=== PATIENT | female | born 1960 | race Hispanic/Latino ===

== ENCOUNTER 2016-07-07 17:35 | Observation (INO) | payer BC ==
[2016-07-07 18:04] LABS: Hematocrit 39.1 % (37.0-47.0); Mean Cell Volume 84.3 fl (78-100); Mean Corpuscular Hgb Conc 33.2 g/dl (32-36); Mean Platelet Volume 9.5 fl (6.0-9.5); Neutrophil # 4.8 K/mm3 (1.3-6.0); Platelet Count 276 K/mm3 (150-450); Red Blood Count 4.64 M/mm3 (4.2-5.4); Red Cell Distribution Width 12.3 % (11.5-14.0); White Blood Count 7.9 K/mm3 (4.0-10.5)
[2016-07-07 18:18] LABS: Prothrombin Time (Patient) 11.4 Seconds (9.4-11.4)
[2016-07-07 18:19] LABS: INR 1.1 INR (0.90-1.10); Partial Thrombolplastin Time 28.7 Seconds (24-32)
[2016-07-07 18:20] LABS: Albumin * 4.1 gm/dl (3.4-5.0); BUN/Creatinine Ratio 19.4 (9.0-21.6); Bilirubin, Total 0.7 mg/dL (0.0-1.1); Ca. Corrected For Albumin 8.9 mg/dL (8.4-10.2); Calcium * 9.3 mg/dL (7.9-10.9); Potassium 3.8 mmol/L (3.4-4.6); Total Protein 7.4 gm/dL (6.2-8.2)
[2016-07-07 18:29] LABS: Anion Gap 14.7 mmol/L (6.8-13.8); Carbon Dioxide 25.1 mmol/L (24-32.6)
--- OUTSIDE RECORDS SUMMARY | 2016-07-07 18:56 | XMS REPORT | Continuity of Care Document ---
:1960 Author Organization [facility] ([facility]) Address [address] [place] [address] Phone [phone] Care Team Providers Name Role Phone EmberJoe Primary Care Provider [phone] Source Comments This disclosure is being made pursuant to the Care Everywhere program, applicable federal and state laws, and may not contain all informaitonavailable regarding this patient.[facility] ([facility]) Active Allergies and Adverse Reactions Allergen Noted Date Severity Reactions Comments Codeine 09/11/2009 Pruritus Sulfamethoprim Ds 09/11/2009 Urticaria (Hives) Current Medications Prescription Sig. Disp. Refills Start Date End Date Status Melatonin 3 mg TbSR Take by mouth at Active bedtime as needed. gabapentin 600 mg Take 1 Tab by 120 Tab 11 01/13/2012 Active tablet mouth 4 times daily. Indications: NEUROPATHIC PAIN HYDROcodone-acetamino Take 1 Tab by Active phen 5-325 mg per mouth as needed. tablet cholecalciferol Take 5,000 Units Active (VITAMIN D3) 1,000 by mouth daily. unit tablet levothyroxine 50 mcg take 1 tablet 2 12/11/2015 Active tablet (50 mcg) by oral route on mon,wed,fri for 90 days levothyroxine 75 mcg take 1 tablet by 2 12/09/2015 Active tablet oral route on ,,wed,s un ALPRAZolam 0.5 mg TAKE 1/2 TO 1 5 05/22/2016 Active tablet TABLET BY MOUTH TWICE DAILY alprazolam (XANAX XR) Take 1.5 mg by Discontinued 3 mg XR tablet mouth as needed. 7 Active Problems Problem Noted Date UTI (lower urinary tract infection) 08/26/2013 Depression 08/26/2013 Hypothyroidism 01/13/2012 Multiple sclerosis 03/13/2011 Most Recent Encounters Date Type Specialty Providers Description 06/18/2016 Office Visit Neurology Gisel Coronado Dx: Liliana sclerosis MD Sagar (Primary Dx) 05/15/2016 Telephone Neurology Gisel Coronado MD 05/04/2016 Hospital Encounter Radiology Sam Luque MD Dx: MS ( multiple sclerosis) 05/04/2016 Hospital Encounter Radiology Sam Luque MD Dx: MS ( multiple sclerosis) 04/16/2016 Office Visit Neurology Gisel Coronado Dx: MS (liliana T, MD sclerosis) (Primary Dx) Immunizations Name Dates Previously Given Next Due Influenza, unspecified 12/07/2014,12/06/2012 Social History Tobacco Use Types Packs/Day Years Used Date Current Every Day Smoker Cigarettes 0.25 2 Smokeless Tobacco: Never Used Tobacco Cessation:Counseling Given: Yes Comments: Alcohol Use Drinks/Week oz/Week Comments No Last Filed Vital Signs Vital Sign Reading Time Taken Blood Pressure 121/71 06/18/2016 8:46 AM CDT Pulse 57 06/18/2016 8:46 AM CDT Temperature - - Respiratory Rate - - Height 1.524 m (5') 06/18/2016 8:46 AM CDT Weight 50.9 kg (112 lb 3.4 oz) 06/18/2016 8:46 AM CDT Body Mass Index 21.92 06/18/2016 8:46 AM CDT Oxygen Saturation 98% 06/18/2016 8:46 AM CDT Plan of Care Date Type Specialty Providers Description 06/18/2017 Appointment Neurology Jroge Luis Armenta MD Subj: Appointment Scheduled [address] [place] [address] [phone] (Fax) Health Maintenance Due Date Last Done Comments HCV Screening 1960 Hepatitis B Vaccine (1 of 3 - Primary 1960 Series) Tdap Vaccine 1969 Lipid Disorder Screening 1976 MMR Vaccine 1976 Td Vaccine 1976 Pneumococcal Vaccine (1 of 1 - PPSV23) 1977 Cervical Cancer Screening 1988 Mammogram 1998 Colonoscopy 04/26/2008 Influenza Vaccine: Seasonal Completed 12/07/2014, 12/06/2012 Results from Last 3 Months MRI SPINE CERVICAL W/WO CONTRAST ([id number]) (05/04/2016 4:46 PM) Impressions Impression: 1. Diffuse subcortical and periventricular white matter plaques, consistent with history of MS. 2. There are multiple new plaques in the subcortical U fibers of the right frontal lobe, as well as about the left lateral ventricle. 3. Multiple white matter plaques are seen throughout the cervical spine and in the left brainstem. 4. No restricted diffusion or enhancement. (Diffusion sequence of the cervical spine is limited due to motion artifact.) Narrative Procedure: MRI BRAIN W/WO CONTRAST ([id number]), MRI SPINE CERVICAL W/WO CONTRAST ([id number]) Indication: History of MS for 7 years. Worsening weakness, numbness and memory. Technique: 1. Multisequence, multiplanar MRI of the brain before and after the uneventful administration of 5.8 mL Gadavist IV contrast using the multiple sclerosis protocol. 2. Multisequence, multiplanar MRI of the cervical spine before and after the uneventful administration of 5.8 mL GadavistIV contrast using a demyelination protocol. Comparison: MRI brain dated 02/01/2012. Findings: -Brain: There are multiple areas of abnormal FLAIR signal throughout the subcortical and periventricular white matter. New areas within the subcortical U fibers are identified in the left frontal lobe (2-17 and 2-9). The more lateral and posterior lesion appears to involve the motor cortex. No suspicious areas of pathologic enhancement or restricted diffusion. There is a new lesion about the left ventricular antrum. An additional new lesion is identified extending from the anterior body of the left ventricle projecting towards the cortex. There is a lesion in the left krishna. There is no acute infarct, intracranial mass, or intra or extra-axial hemorrhage. The ventricles, cortical sulci and basal cisterns are symmetric and appropriate in size. The pituitary and suprasellar region are unremarkable. The major intracranial flow-voids are preserved. Normal orbits. The paranasal sinuses demonstrate diffuse mild mucosal thickening. Mastoid air cells are clear. Normal bone marrow signal. -Cervical Spine: There is grossly anatomic alignment. Vertebral body heights are well-maintained. There are scattered high T2/STIR signal plaques throughout the cervical and upper thoracic cord. There is no pathologic enhancement. The diffusion sequence is degraded by artifact and not interpretable. Unremarkable marrow signal. Prevertebral soft tissues are unremarkable. There are mild to moderate degenerative changes without significant stenosis. Grossly normal thyroid. Procedure Note Eduin, Incoming Imaging Results - WedMay 04, 2016 5:09 PM [facility] Procedure: MRI BRAIN W/WO CONTRAST ([id number]), MRI SPINE CERVICAL W/WO CONTRAST ([id number]) Indication: History of MS for 7 years. Worsening weakness, numbness and memory. Technique: 1. Multisequence, multiplanar MRI of the brain before and after the uneventful administration of 5.8 mL Gadavist IV contrast using the multiple sclerosis protocol. 2. Multisequence, multiplanar MRI of the cervical spine before and after the uneventful administration of 5.8 mL Gadavist IV contrast using a demyelination protocol. Comparison: MRI brain dated 02/01/2012. Findings: -Brain: There are multiple areas of abnormal FLAIR signal throughout the subcortical and periventricular white matter. New areas within the subcortical U fibers are identified in the left frontal lobe (2-17 and 2-9). The more lateral and posterior lesion appears to involve the motor cortex. No suspicious areas of pathologic enhancement or restricted diffusion. There is a new lesion about the left ventricular antrum. An additional new lesion is identified extending from the anterior body of the left ventricle projecting towards the cortex. There is a lesion in the left krishna. There is no acute infarct, intracranial mass, or intra or extra-axial hemorrhage. The ventricles, cortical sulci and basal cisterns are symmetric and appropriate in size. The pituitary and suprasellar region are unremarkable. The major intracranial flow-voids are preserved. Normal orbits. The paranasal sinuses demonstrate diffuse mild mucosal thickening. Mastoid air cells are clear. Normal bone marrow signal. -Cervical Spine: There is grossly anatomic alignment. Vertebral body heights are well-maintained. There are scattered high T2/STIR signal plaques throughout the cervical and upper thoracic cord. There is no pathologic enhancement. The diffusion sequence is degraded by artifact and not interpretable. Unremarkable marrow signal. Prevertebral soft tissues are unremarkable. There are mild to moderate degenerative changes without significant stenosis. Grossly normal thyroid. IMPRESSION Impression: 1. Diffuse subcortical and periventricular white matter plaques, consistent with history of MS. 2. There are multiple new plaques in the subcortical U fibers of the right frontal lobe, as well as about the left lateral ventricle. 3. Multiple white matter plaques are seen throughout the cervical spine and in the left brainstem. 4. No restricted diffusion or enhancement. (Diffusion sequence of the cervical spine is limited due to motion artifact.) MRI BRAIN W/WO CONTRAST ([id number]) (05/04/2016 4:29 PM) Impressions Impression: 1. Diffuse subcortical and periventricular white matter plaques, consistent with history of MS. 2. There are multiple new plaques in the subcortical U fibers of the right frontal lobe, as well as about the left lateral ventricle. 3. Multiple white matter plaques are seen throughout the cervical spine and in the left brainstem. 4. No restricted diffusion or enhancement. (Diffusion sequence of the cervical spine is limited due to motion artifact.) Narrative Procedure: MRI BRAIN W/WO CONTRAST ([id number]), MRI SPINE CERVICAL W/WO CONTRAST ([id number]) Indication: History of MS for 7 years. Worsening weakness, numbness and memory. Technique: 1. Multisequence, multiplanar MRI of the brain before and after the uneventful administration of 5.8 mL Gadavist IV contrast using the multiple sclerosis protocol. 2. Multisequence, multiplanar MRI of the cervical spine before and after the uneventful administration of 5.8 mL GadavistIV contrast using a demyelination protocol. Comparison: MRI brain dated 02/01/2012. Findings: -Brain: There are multiple areas of abnormal FLAIR signal throughout the subcortical and periventricular white matter. New areas within the subcortical U fibers are identified in the left frontal lobe (2-17 and 2-9). The more lateral and posterior lesion appears to involve the motor cortex. No suspicious areas of pathologic enhancement or restricted diffusion. There is a new lesion about the left ventricular antrum. An additional new lesion is identified extending from the anterior body of the left ventricle projecting towards the cortex. There is a lesion in the left krishna. There is no acute infarct, intracranial mass, or intra or extra-axial hemorrhage. The ventricles, cortical sulci and basal cisterns are symmetric and appropriate in size. The pituitary and suprasellar region are unremarkable. The major intracranial flow-voids are preserved. Normal orbits. The paranasal sinuses demonstrate diffuse mild mucosal thickening. Mastoid air cells are clear. Normal bone marrow signal. -Cervical Spine: There is grossly anatomic alignment. Vertebral body heights are well-maintained. There are scattered high T2/STIR signal plaques throughout the cervical and upper thoracic cord. There is no pathologic enhancement. The diffusion sequence is degraded by artifact and not interpretable. Unremarkable marrow signal. Prevertebral soft tissues are unremarkable. There are mild to moderate degenerative changes without significant stenosis. Grossly normal thyroid. Procedure Note Eduin, Incoming Imaging Results - WedMay 04, 2016 5:09 PM [facility] Procedure: MRI BRAIN W/WO CONTRAST ([id number]), MRI SPINE CERVICAL W/WO CONTRAST ([id number]) Indication: History of MS for 7 years. Worsening weakness, numbness and memory. Technique: 1. Multisequence, multiplanar MRI of the brain before and after the uneventful administration of 5.8 mL Gadavist IV contrast using the multiple sclerosis protocol. 2. Multisequence, multiplanar MRI of the cervical spine before and after the uneventful administration of 5.8 mL Gadavist IV contrast using a demyelination protocol. Comparison: MRI brain dated 02/01/2012. Findings: -Brain: There are multiple areas of abnormal FLAIR signal throughout the subcortical and periventricular white matter. New areas within the subcortical U fibers are identified in the left frontal lobe (2-17 and 2-9). The more lateral and posterior lesion appears to involve the motor cortex. No suspicious areas of pathologic enhancement or restricted diffusion. There is a new lesion about the left ventricular antrum. An additional new lesion is identified extending from the anterior body of the left ventricle projecting towards the cortex. There is a lesion in the left krishna. There is no acute infarct, intracranial mass, or intra or extra-axial hemorrhage. The ventricles, cortical sulci and basal cisterns are symmetric and appropriate in size. The pituitary and suprasellar region are unremarkable. The major intracranial flow-voids are preserved. Normal orbits. The paranasal sinuses demonstrate diffuse mild mucosal thickening. Mastoid air cells are clear. Normal bone marrow signal. -Cervical Spine: There is grossly anatomic alignment. Vertebral body heights are well-maintained. There are scattered high T2/STIR signal plaques throughout the cervical and upper thoracic cord. There is no pathologic enhancement. The diffusion sequence is degraded by artifact and not interpretable. Unremarkable marrow signal. Prevertebral soft tissues are unremarkable. There are mild to moderate degenerative changes without significant stenosis. Grossly normal thyroid. IMPRESSION Impression: 1. Diffuse subcortical and periventricular white matter plaques, consistent with history of MS. 2. There are multiple new plaques in the subcortical U fibers of the right frontal lobe, as well as about the left lateral ventricle. 3. Multiple white matter plaques are seen throughout the cervical spine and in the left brainstem. 4. No restricted diffusion or enhancement. (Diffusion sequence of the cervical spine is limited due to motion artifact.)
--- OUTSIDE RECORDS SUMMARY | 2016-07-07 18:58 | XMS REPORT | Continuity of Care Document ---
:1960 Author Organization [facility] ([facility]) Address [address] [place] [address] Phone [phone] Care Team Providers Name Role Phone EmberJoe Primary Care Provider [phone] Source Comments This disclosure is being made pursuant to the Care Everywhere program, applicable federal and state laws, and may not contain all informaitonavailable regarding this patient.[facility] ([facility]) Active Allergies and Adverse Reactions Allergen Noted [...] Neurology Gisel Coronado Dx: Liliana sclerosis MD Sagra (Primary Dx) 05/15/2016 Telephone Neurology Gisel Coronado [...] Type Specialty Providers Description 06/18/2017 Appointment Neurology Jorge Luis Armenta MD Subj: Appointment Scheduled [address] [place] [address] [phone] (Fax) Health Maintenance Due Date Last Done [...] 3 Months MRI SPINE CERVICAL W/WO CONTRAST ([id number]) (05/04/2016 4:46 PM) Impressions Impression: 1. Diffuse [...] artifact.) Narrative Procedure: MRI BRAIN W/WO CONTRAST ([id number]), MRI SPINE CERVICAL W/WO CONTRAST ([id number]) Indication: History of MS for 7 years. [...] Results - WedMay 04, 2016 5:09 PM [employer] Procedure: MRI BRAIN W/WO CONTRAST ([id number]), MRI SPINE CERVICAL W/WO CONTRAST ([id number]) Indication: History of MS for 7 years. [...] to motion artifact.) MRI BRAIN W/WO CONTRAST ([id number]) (05/04/2016 4:29 PM) Impressions Impression: 1. Diffuse [...] artifact.) Narrative Procedure: MRI BRAIN W/WO CONTRAST ([id number]), MRI SPINE CERVICAL W/WO CONTRAST ([id number]) Indication: History of MS for 7 years. [...] Results - WedMay 04, 2016 5:09 PM [employer] Procedure: MRI BRAIN W/WO CONTRAST ([id number]), MRI SPINE CERVICAL W/WO CONTRAST ([id number]) Indication: History of MS for 7 years. [...]
[2016-07-07] MEDS ORDERED: ACETAMINOPHEN 500 MG TABLET PO ONE (19:02)
[2016-07-07] MEDS ORDERED: IBUPROFEN 600 MG TABLET PO PRN (19:26)
--- NOTE | 2016-07-07 19:30 | ERNOTE ---
Neuro HPI ER Record Date of Service: 07/07/16 Presenting Symptoms: weakness, other - jerking Time Seen by Provider: 07/07/16 17:59 Source: patient, family Exam Limitations: no limitations Immunizations: IMMUNIZATION HX Immunizations Up to Date Yes History of Influenza Vaccine Yes Hx Pneumococcal Vaccination No Allergies/Adverse Reactions: Allergies Allergy/AdvReac Type Severity Reaction Status Date / Time codeine [Codeine] AdvReac Mild Itching Verified 12/04/14 07:19 sulfamethoxazole AdvReac Mild RASH Verified 12/04/14 07:19 [From Bactrim] trimethoprim [From Bactrim] AdvReac Mild RASH Verified 12/04/14 07:19 Home Medications: HOME MEDICATIONS ALPRAZolam [Xanax] 0.25 - 0.5 mg PO BID 04/12/12 [Last Taken Unknown] Cholecalciferol (Vitamin D3) [Vitamin D3] 3,000 unit PO DAILY 04/12/12 [Last Taken Unknown] Gabapentin 600 mg PO QID 04/12/12 [Last Taken Unknown] Levothyroxine Sodium [Synthroid] 75 mcg PO SUTUTHSA 04/12/12 [Last Taken Unknown ] HYDROcodone/ACETAMINOPHEN [Lortab 5-325 mg Tablet] 1 each PO Q6H PRN 11/13/14 [ Last Taken Unknown] Levothyroxine Sodium [Synthroid] 50 mcg PO MOWEFR 11/13/14 [Last Taken Unknown] Ibuprofen [Motrin] 600 mg PO TID PRN #30 tab 12/04/14 [Last Taken Unknown] - History of Present Illness Narrative: Patient present to the ED with jerking, weakness and headache. She relaets that earlier today she started to have a headache. She relates that around 11 today she had spasms and jerking of her left eye and face. A little over an hour ago she had some jerking of her left arm and weakness of left arm and leg. That weakness is now nearly entirely resolved. She was conscious at all times. No CP or SOB. No abdominal pain. Onset: sudden onset - Character of Deficits New weakness: Present: LUE, LLE Additional Deficits: Absent: vision problems, difficulty swallowing, bed-ridden Baseline Cognition: Present: alert, oriented x 4 Baseline Gait: Present: other - mild deficit from her MS Associated Symptoms: Reports: headache. Denies: fever/chills, chest pain, altered mental status Prior Treament: Denies: recently seen Review of Systems - Review of Systems Constitutional: Absent: fever Respiratory: Absent: shortness of breath Cardiology: Absent: chest pain Gastrointestinal/Abdominal: Absent: abdominal pain Genitourinary: Absent: dysuria Skin: Absent: rash Neurological: Present: See HPI All Other Systems: All systems neg except as marked - Patient's Past Medical History Patient History - Medical: Arthritis, Hypothyroidism, Other Patient History - Cardiac/Respiratory: No pertinent hx Patient History - Cancer: Colon Patient History - Surgical Procedures: Colon Resection, , D & C, T & A , Other Patient History - Other: None - Social History Living Situations: home Abuse History: No History of abuse Psych History: No pertinent hx Smoking Status: Current every day smoker Have you smoked in the past 12 months: Yes Do you dip or chew tobacco: No Alcohol Use: none Drug Use: other - Immunizations Immunizations Up to Date: Yes Hx Pneumococcal Vaccination: No History of Influenza Vaccine: Yes Physical Exam - Physical Exam General Appearance: Present: alert, no apparent distress Eye Exam: Normal inspection: bilateral, PERRL: bilateral, EOMI: bilateral Ears, Nose, Throat: Present: normal ENT inspection Neck: Present: normal inspection Respiratory: Present: no respiratory distress, normal breath sounds, no accessory muscle use, lungs clear Cardiovascular/Chest: Present: regular rate, rhythm, normal peripheral pulses Gastrointestinal/Abdominal: Present: normal bowel sounds, nontender, soft, tenderness Back Exam: Absent: CVA tenderness (R), CVA tenderness (L) Extremity Exam: Present: normal inspection Neurological Exam: Present: alert, oriented, normal mood/affect, shipper and receiving II-XII nml as tested, normal cerebellar test, other - No pronator drift. Finger to nose wnl. Can hold both legs off [facility] bed against gravity but both mildly weak. NIH - 0 at this time.. Absent: facial droop Skin Exam: Absent: skin rash ED Progress - Results and Orders Patient's Lab Results:: I have reviewed the patient's lab results. - Vital Signs Patient's Vital Signs:: I have reviewed the patient's vital signs. Vital Signs: Vital Signs 07/07/16 17:39 Temperature 37.2 C Pulse Rate 69 Respiratory 16 Rate Blood Pressure 127/80 O2 Sat by Pulse 93 Oximetry - EKG EKG read: Interp. by me EKG Comments: Sinus Alan rate 49. Non-specific ST/T wave changes no STEMI. - CT/Ultrasound CT/Ultrasound Narrative: I reviewed HCT report from radiology, no acute process. - Progress/Reassessment Chief Complaint: Seizure Activity Progress Note-Subjective: 07/07/16 19:27 No indication for tPA. NIH - 0 at this time and also possible seizure. No active Sz. Needs further eval, worsening MS vs TIA vs seizure, vs other. Pt agreeable to admission. D/W Dr Cornejo who will admit. Departure Clinical Impression: Jerking, Weakness - Departure Disposition: [facility] Condition: Stable
[2016-07-07] MEDS ORDERED: ALPRAZolam 0.5 MG TABLET PO PRN (20:50)
[2016-07-07] MEDS ORDERED: GABAPENTIN 300 MG CAPSULE PO SCH (21:00)
[2016-07-07] MEDS: HYDROcodone/ACETAMINOPHEN 1 EACH TABLET PO PRN (21:10)
--- NOTE | 2016-07-07 21:31 | HP ---
Chief Complaint - Chief Complaint Date of Service: 07/07/16 Time of Service: 20:52 Chief Complaint: weakness History of Present Illness: 56 years old female adm to the hospital with reports of left side weakness, tremors and left eye spasm (twitching). Weakness an tremors had self resolved before coming to the ER. PMH significant for MS diagnosed 8yrs ago, migraine, colon cancer and hypothyroidism. Per pt she has been having frontal headache x2 days, accompanied with consistent left eye twitching. She typically have the weakness and eye twitching but it has not been this consistent since her last MS relapse several years ago. Per pt s/s got progressively worst today, her face was twisted and she was unable to talk. Family was concerns and brought her to the ER. Last month she had follow up appointment with neurologist in [place]. Her MRI brain and lumbar spine showed new lesions.She is on neurontin 600mg QID and Copaxone was discontinued a year ago. In ER CT head no acute changes, will obtain MRI and EEG to r/o TIA vs seizures. Plan of care discussed with pt and family they verbalized understanding and agrees. - Patient's Past Medical History Patient History - Medical: Arthritis, Hypothyroidism, Other - multiple sclerosis Patient History - Cardiac/Respiratory: No pertinent hx Patient History - Cancer: Colon Patient History - Surgical Procedures: Colon Resection, - x4, D & C, T & A, Other - Tonsillectomy Patient History - Other: None - Family History Mother Family History - Medical: Osteoporosis Family History - Cancer: Colon Father Family History - Cancer: Lung, Throat - Social History Living Situations: spouse Abuse History: No History of abuse Psych History: No pertinent hx Smoking Status: Current every day smoker Have you smoked in the past 12 months: Yes Do you dip or chew tobacco: No Patient requests Smoking Cessation Consult: No Initiate information on Smoking Cessation: Yes Alcohol Use: none Drug Use: other - Immunizations Immunizations Up to Date: Yes Hx Pneumococcal Vaccination: No History of Influenza Vaccine: Yes Review Of Systems (GEN) - Review of Systems Generalized/Overall Review: Present: Weakness EENTM: Present: Other - left eye spasm Respiratory: Present: No Symptoms Reported Cardiac: Present: No Symptoms Reported Abdominal: Present: No Symptoms Reported Genitourinary: Present: No Symptoms Reported Musculoskeletal: Present: No Symptoms Reported Neurological: Present: Headache, Parasthesia, Tremors, Weakness Skin: Present: No Symptoms Reported Endocrine: Present: No Symptoms Reported Immunizations: IMMUNIZATION HX Immunizations Up to Date Yes History of Influenza Vaccine Yes Hx Pneumococcal Vaccination No Allergies/Adverse Reactions: Allergies Allergy/AdvReac Type Severity Reaction Status Date / Time codeine [Codeine] AdvReac Mild Itching Verified 07/07/16 20:17 sulfamethoxazole AdvReac Mild RASH Verified 07/07/16 20:17 [From Bactrim] trimethoprim [From Bactrim] AdvReac Mild RASH Verified 07/07/16 20:17 Home Medications: HOME MEDICATIONS ALPRAZolam [Xanax] 0.5 mg PO BID PRN 04/12/12 [Last Taken Unknown] Cholecalciferol (Vitamin D3) [Vitamin D3] 5,000 unit PO DAILY 04/12/12 [Last Taken Unknown] Gabapentin 600 mg PO QID 04/12/12 [Last Taken Unknown] Levothyroxine Sodium [Synthroid] 75 mcg PO SUTUTHSA 04/12/12 [Last Taken Unknown ] HYDROcodone/ACETAMINOPHEN [Lortab 5-325 mg Tablet] 1 each PO Q6H PRN 11/13/14 [ Last Taken Unknown] Levothyroxine Sodium [Synthroid] 50 mcg PO MOWEFR 11/13/14 [Last Taken Unknown] Exam - Exam Vital Signs: Vital Signs - Last Taken Temp 36.6 C 07/07/16 20:00 Pulse 56 L 07/07/16 20:07 Resp 16 07/07/16 20:07 BP 102/64 07/07/16 20:07 Pulse Ox 94 07/07/16 20:07 Constitutional: Present: Alert, Oriented x3, Cooperative, Well developed, No distress, Young ENT Exam: Present: normal ENT inspection, moist mucous membranes Eye Exam: bilateral eye: PERRL Back Exam: Present: normal inspection Breasts: Present: Exam deferred Respiratory: Present: chest non-tender, lungs clear, normal breath sounds, no respiratory distress Cardiovascular/Chest: Present: normal peripheral pulses, regular rate, rhythm, no chest tenderness, no edema, bradycardia Peripheral Pulses: dorsalis-pedis (R): 3+, dorsalis-pedis (L): 3+ Abdomen: Present: Normal bowel sounds, soft, nontender, nondistended /Rectal: Present: Exam deferred Extremity: Present: normal range of motion, non-tender, normal inspection, no pedal edema Skin Exam: Present: normal color, warm/dry Lymphatic: Present: no adenopathy Neurologic: Present: oriented x 3 Appearance: Present: appropriate appearance Eye contact: Present: cooperative, good eye contact Thoughts: Present: normal thought pattern Diagnostic Studies: Laboratory Results WBC 7.9 K/mm3 (4.0-10.5) 07/07/16 17:55 RBC 4.64 M/mm3 (4.2-5.4) 07/07/16 17:55 Hgb 13.0 gm/dL (12.5-16.0) 07/07/16 17:55 Hct 39.1 % (37.0-47.0) 07/07/16 17:55 MCV 84.3 fl (78-100) 07/07/16 17:55 MCH 28.0 pg (27-31) 07/07/16 17:55 MCHC 33.2 g/dl (32-36) 07/07/16 17:55 RDW 12.3 % (11.5-14.0) 07/07/16 17:55 Plt Count 276 K/mm3 (150-450) 07/07/16 17:55 MPV 9.5 fl (6.0-9.5) 07/07/16 17:55 Immature Gran % (Auto) 0.50 % (0.001-0.429) H 07/07/16 17:55 Immature Gran # (Auto) 0.04 K/mm3 (0.000-0.0310) H 07/07/16 17:55 Neutrophils % 61.0 % (42-75.0) 07/07/16 17:55 Lymphocytes % 28.3 % (20-51) 07/07/16 17:55 Monocytes % 6.4 % (0.0-9) 07/07/16 17:55 Eosinophils % 2.9 % (0.0-3.0) 07/07/16 17:55 Basophils % 0.9 % (0.0-1.0) 07/07/16 17:55 Nucleated RBC % 0.0 k/mm3 (0-1) 07/07/16 17:55 Neutrophils # 4.8 K/mm3 (1.3-6.0) 07/07/16 17:55 Lymphocytes # 2.3 k/mm3 (1.5-3.5) 07/07/16 17:55 Monocytes # 0.5 k/mm3 (0.0-1.0) 07/07/16 17:55 Eosinophils # 0.2 k/mm3 (0.0-0.7) 07/07/16 17:55 Absolute Basophils 0.1 k/mm3 (0.0-0.1) 07/07/16 17:55 ESR 5 mm/hr (0-15) 07/07/16 17:55 PT 11.4 Seconds (9.4-11.4) 07/07/16 17:55 INR (Anticoag Therapy) 1.10 INR (0.90-1.10) 07/07/16 17:55 PTT ([place]) 28.7 Seconds (24-32) 07/07/16 17:55 Sodium 142 mmol/L (132-142) 07/07/16 17:55 Plasma Sodium 142 mmol/L (130-142) 07/07/16 17:55 Potassium 3.8 mmol/L (3.4-4.6) 07/07/16 17:55 Chloride 106 mmol/L (97-106) 07/07/16 17:55 Carbon Dioxide 25.1 mmol/L (24-32.6) 07/07/16 17:55 Anion Gap 14.7 mmol/L (6.8-13.8) H 07/07/16 17:55 BUN 12 mg/dL (3-23) 07/07/16 17:55 Creatinine 0.62 mg/dL (0.4-1.4) 07/07/16 17:55 Est GFR (Non-Af Amer) 105 mL/min (60-130) 07/07/16 17:55 BUN/Creatinine Ratio 19.4 (9.0-21.6) 07/07/16 17:55 Random Glucose 103 mg/dL (70-110) 07/07/16 17:55 Calcium 9.3 mg/dL (7.9-10.9) 07/07/16 17:55 Calcium Adj for Albumin 8.9 mg/dL (8.4-10.2) 07/07/16 17:55 Total Bilirubin 0.7 mg/dL (0.0-1.1) 07/07/16 17:55 AST 14 U/L (0-48) 07/07/16 17:55 ALT 22 U/L (19-67) 07/07/16 17:55 Alkaline Phosphatase 50 U/L (50-170) 07/07/16 17:55 Total Protein 7.4 gm/dL (6.2-8.2) 07/07/16 17:55 Albumin 4.1 gm/dl (3.4-5.0) 07/07/16 17:55 TSH 0.955 uIU/mL (0.358-3.74) 07/07/16 17:55 CT head no acute abnormality Assessment/Plan - Narrative Narrative: Multiple sclerosis- possible exacerbation of s/s Continue with home dose of neurontin Per pt Repeated MRI last month showed more lesions MRI brain pending and pt to follow up with neurologist in [place] upon discharge Pt evaluation and treatment Left eye spasms- likely from her new lesions of the MS pt reported spasms are more consistent than before Continue with home dose of medications and follow up with neurologist upon discharge. ?TIA s/s resolved before coming to the ER CT head no acute changes MRI brain pending ? Seizure No witness of activity, s/s resolved before coming to the ER EEG pending Headache Motrin pRN Code status: Full Smoking cessation education and nicotine patches VTE ppx: Ambulate Anticipated discharge home tomorrow and follow up with PCP/ neurologist Time 35 minutes - Assessment/Plan (1) Multiple sclerosis Problem: Chronic (2) Weakness Problem: Resolved
[2016-07-08] MEDS: HYDROcodone/ACETAMINOPHEN 1 EACH TABLET PO PRN (04:15)
[2016-07-08] MEDS ORDERED: NORMAL SALINE 1,000 ML IV PRN (06:04)
[2016-07-08] MEDS ORDERED: LEVOTHYROXINE SODIUM 50 MCG TABLET PO SCH (07:00)
[2016-07-08] MEDS ORDERED: METHYLPREDNISOLONE SOD SUCC 100 MG in WATER FOR INJ.,BACTERIOSTATIC 0 ML IV ONE (07:30)
--- NOTE | 2016-07-08 07:37 | PN ---
Progess Note - Interim Narrative: 07/08/16 07:33 Pt. described invents last night and based on description it appears this is more an MS exacerbation or escalation than a seizure or TIA. She remained alert throughout the episode and she was having bizarre more tonic/contracture like sx on one side, c/w MS. Will cancel MRI and EEG as I don't think these will be beneficial and the EEG will most likely be abnormal given her MS and possibly more confusing than beneficial. She is already on gabapentin 600 QID so will continue this. Do a single dose of IV solumedrol and see how this effects her left facial discomfort. If it is helpful will to a prednisone taper on her over several weeks. Anticipate d/c home later today. Will advance to regular diet.
[2016-07-08] MEDS: GABAPENTIN 600 MG TABLET PO SCH ×2 (08:01→12:10)
[2016-07-08] MEDS ORDERED: CHOLECALCIFEROL 1,000 UNIT CAPSULE PO SCH (09:00)
[2016-07-08] MEDS ORDERED: NICOTINE 21 MG PATC TD SCH (10:00)
[2016-07-08 11:17] VITALS: BP 127/73
[2016-07-08] MEDS ORDERED: METHYLPREDNISOLONE SOD SUCC IV SCH (13:00)
[2016-07-08] MEDS ORDERED: NORMAL SALINE IV SCH (13:00)
--- NOTE | 2016-07-08 13:04 | DS ---
Description of Stay: Pt. admitted for a left sided almost tonic clonic type activity, but without loss of consciousness or post ictal state. Sx resolved fairly fast, were proceeded with a left facial discomfort, which she stated was starting to come back the morning HD#2. A single dose of solumedrol 100mg was given which gave her immediate relief and made her feel "normal" but had a short lived 4 hr benefit. An additional dose of 1000mg IV solumedrol was given prior to discharge with continued tx outpt to be determined by the duration of effect from this higher dose. This can range from dosing q48hrs to dosing daily for up to 5 doses. Procedures Performed: none Discharge Disposition: Home self care Disposition: Home self-care Condition: Good Discharge Activity: Activity as tolerated - did caution her that if she is having sx she should not drive. Referrals: Joe Pa MD [Primary Care Provider] - 07/13/16 (pt. to call my office tomorrow with update of how her sx are doing.) Complete Home Medications List: Complete Home Medication List: ALPRAZolam [Xanax] 0.5 mg PO BID PRN 04/12/12 Cholecalciferol (Vitamin D3) [Vitamin D3] 5,000 unit PO DAILY 04/12/12 Gabapentin 600 mg PO QID 04/12/12 Levothyroxine Sodium [Synthroid] 75 mcg PO SUTUTHSA 04/12/12 HYDROcodone/ACETAMINOPHEN [Lortab 5-325 mg Tablet] 1 each PO Q6H PRN 11/13/14 Levothyroxine Sodium [Synthroid] 50 mcg PO MOWEFR 11/13/14 Ibuprofen [Motrin] 600 mg PO TID PRN #0 tablet 07/08/16 Nicotine [Nicoderm] 21 mg TD Q24H patch.td24 07/08/16
[2016-07-09] MEDS ORDERED: LEVOTHYROXINE SODIUM 75 MCG TABLET PO SCH (07:00)
== END 2016-07-08 15:20 | disposition home or self-care (01) ==
LOC: ER 17:35 → MS 18:54
PROVIDERS: ADMIT Family Medicine; ATTEND Family Medicine
DX: G35 Multiple sclerosis (principal); R53.1 Weakness; R51 Headache; Z72.0 Tobacco use; G25.89 Other specified extrapyramidal and movement disorders
CPT/HCPCS: 36415; 70450; 80053; 84443; 85025; 85610; 85652; 85730; 93005; 96365; 96375; 99284; G0378

== ENCOUNTER 2016-07-09 07:36 | Emergency (ER) | payer BC ==
[2016-07-09] MEDS ORDERED: NORMAL SALINE 1,000 ML IV ONE (07:58)
[2016-07-09] MEDS ORDERED: PROMETHAZINE HCL 12.5 MG in DEXTROSE 5 % IN WATER 50 ML IV ONE ×2 (07:58)
[2016-07-09] MEDS ORDERED: KETOROLAC TROMETHAMINE 30 MG/ML VIAL IV ONE (07:58)
[2016-07-09] MEDS ORDERED: KETOROLAC TROMETHAMINE 30 MG/ML VIAL ONE (08:13)
[2016-07-09] MEDS ORDERED: NORMAL SALINE IV ONE (08:30)
[2016-07-09] MEDS ORDERED: MAGNESIUM SULFATE IV ONE (08:30)
--- OUTSIDE RECORDS SUMMARY | 2016-07-09 08:40 | XMS REPORT | Continuity of Care Document ---
:1960 Author Organization [facility] ([facility]) Address [address] [place] [address] Phone [phone] Care Team Providers Name Role Phone EmberJoe Primary Care Provider [phone] Source Comments This disclosure is being made pursuant to the Care Everywhere program, applicable federal and state laws, and may not contain all informaitonavailable regarding this patient.[facility] ([facility]) Active Allergies and Adverse Reactions Allergen [...] Recent Encounters Date Type Specialty Providers Description 07/09/2016 Nurse Triage Patient Services Herlinda French, Chief Comp: Headache RN 06/18/2016 Office Visit Neurology [place], Dx: Liliana Keith MD sclerosis (Primary Dx) 05/15/2016 Telephone Neurology Gisel Coronado MD 05/04/2016 Hospital Encounter Radiology Sam Luque, Dx: MS (multiple MD sclerosis) 05/04/2016 Hospital Encounter Radiology Sam Luque, Dx: MS (multiple MD sclerosis) 04/16/2016 Office Visit Neurology [place], Dx: MS (multiple Gisel Keith MD sclerosis) (Primary Dx) Immunizations Name Dates [...] Luis Armenta MD Subj: Appointment Scheduled [address] [place] [address] [phone] (Fax) Health Maintenance Due Date Last Done Comments HCV Screening 1960 Hepatitis B Vaccine (1 of 3 - Primary 1960 Series) Tdap Vaccine 1969 Lipid Disorder Screening 1976 MMR Vaccine 1976 Td Vaccine 1976 Pneumococcal Vaccine (1 of 1 - PPSV23) 1977 Cervical Cancer Screening 1988 Mammogram 1998 Colonoscopy 04/26/2008 Influenza Vaccine: Seasonal (Season Ended) 2016 12/07/2014, 12/06/2012 Results from Last 3 Months MRI SPINE CERVICAL W/WO CONTRAST ([id number]) (05/04/2016 4:46 PM) Impressions Impression: 1. Diffuse [...] artifact.) Narrative Procedure: MRI BRAIN W/WO CONTRAST ([id number]), MRI SPINE CERVICAL W/WO CONTRAST ([id number]) Indication: History of MS for 7 years. [...] Results - WedMay 04, 2016 5:09 PM COMBAT ENGINEER Procedure: MRI BRAIN W/WO CONTRAST ([id number]), MRI SPINE CERVICAL W/WO CONTRAST ([id number]) Indication: History of MS for 7 years. [...] to motion artifact.) MRI BRAIN W/WO CONTRAST ([id number]) (05/04/2016 4:29 PM) Impressions Impression: 1. Diffuse [...] artifact.) Narrative Procedure: MRI BRAIN W/WO CONTRAST ([id number]), MRI SPINE CERVICAL W/WO CONTRAST ([id number]) Indication: History of MS for 7 years. [...] Results - WedMay 04, 2016 5:09 PM COMBAT ENGINEER Procedure: MRI BRAIN W/WO CONTRAST ([id number]), MRI SPINE CERVICAL W/WO CONTRAST ([id number]) Indication: History of MS for 7 years. [...]
[2016-07-09] MEDS ORDERED: NORMAL SALINE 1,000 ML IV PRN (09:34)
--- NOTE | 2016-07-09 11:05 | ERNOTE ---
Medical Problem HPI - Narrative Date of Service: 07/09/16 - General Chief Complaint: Nausea/Vomiting Time Seen by Provider: 07/09/16 07:51 Source: patient Exam Limitations: no limitations - Immun/Allergies/Home Medications Immunizations: IMMUNIZATION HX Immunizations Up to Date Yes History of Influenza Vaccine Yes Hx Pneumococcal Vaccination No Allergies/Adverse Reactions: Allergies codeine [Codeine] Adverse Reaction (Mild, Verified 07/09/16 07:48) Itching sulfamethoxazole [From Bactrim] Adverse Reaction (Mild, Verified 07/09/16 07:48) RASH trimethoprim [From Bactrim] Adverse Reaction (Mild, Verified 07/09/16 07:48) RASH Home Medications: HOME MEDICATIONS ALPRAZolam [Xanax] 0.5 mg PO BID PRN 04/12/12 [Last Taken Unknown] Cholecalciferol (Vitamin D3) [Vitamin D3] 5,000 unit PO DAILY 04/12/12 [Last Taken Unknown] Gabapentin 600 mg PO QID 04/12/12 [Last Taken Unknown] Levothyroxine Sodium [Synthroid] 75 mcg PO SUTUTHSA 04/12/12 [Last Taken Unknown ] HYDROcodone/ACETAMINOPHEN [Lortab 5-325 mg Tablet] 1 each PO Q6H PRN 11/13/14 [ Last Taken Unknown] Levothyroxine Sodium [Synthroid] 50 mcg PO MOWEFR 11/13/14 [Last Taken Unknown] Promethazine HCl [Phenergan] 25 mg PO QID PRN #15 tab 07/09/16 [Last Taken Unknown] - History of Present History Narrative: Patient presents to the ED with headache. I recently saw the patient and admitted her to the hospital for some jerking and weakness. She has a headache at that time and states the headache has been persistent ever since coming on. She relates the SAHNI ins left to fight over the top of her head. SHe states that she has had migraine headaches in the past and this feels like that. She relates that this is not the worst headache of her life, her first migraine headache was her worst headache. She does state that this is however a severe SAHNI and has been severe since onset 3 days ago. No recurrent jerking or weakness. Her gait is unsteady and has been more unsteady for 3 days. No acute weakness. No thunderclap onset. No fever. No acute vision changes. She feels this SAHNI feels like what she had with her migraine in the past. Timing: constant Severity: severe Modifying Factors - (Improves): Present: other - nothing Modifying Factors - (Worsens): Present: other - nothing Review of Systems - Review of Systems Constitutional: Absent: fever EYE: Absent: vision changes Respiratory: Absent: shortness of breath Cardiology: Absent: chest pain Gastrointestinal/Abdominal: Present: vomiting. Absent: abdominal pain Musculoskeletal: Present: no symptoms reported Skin: Absent: rash Neurological: Present: See HPI, headache - Patient's Past Medical History Patient History - Medical: Arthritis, Hypothyroidism, Other Patient History - Cardiac/Respiratory: No pertinent hx Patient History - Cancer: Colon Patient History - Surgical Procedures: Colon Resection, , D & C, T & A , Other Patient History - Other: None LMP (females 10-50): age - Family History Mother Family History - Medical: Osteoporosis Family History - Cardiac/Respiratory: No pertinent hx Family History - Cancer: Colon Father Family History - Cancer: Lung, Throat - Social History Living Situations: home Abuse History: No History of abuse Psych History: No pertinent hx Smoking Status: Current every day smoker Alcohol Use: none Drug Use: other - Immunizations Immunizations Up to Date: Yes Hx Pneumococcal Vaccination: No History of Influenza Vaccine: Yes Physical Exam - Physical Exam General Appearance: Present: alert, no apparent distress Eye Exam: Normal inspection: bilateral, PERRL: bilateral, EOMI: bilateral Ears, Nose, Throat: Present: normal ENT inspection Neck: Present: normal inspection, supple Respiratory: Present: no respiratory distress, normal breath sounds, lungs clear Cardiovascular/Chest: Present: regular rate, rhythm Gastrointestinal/Abdominal: Present: normal bowel sounds, nontender, nondistended, soft. Absent: tenderness Extremity Exam: Present: normal inspection Neurological Exam: Present: alert, normal mood/affect, other - NIH - 0. No pronator drift. Finger to nose seems ot be wnl. LE strngth seems baseline without clear acute deficit. No findings of acute stroke. She does have MS but this exam is unchanged from my exam 3 days ago. Skin Exam: Absent: skin rash ED Progress - Vital Signs Patient's Vital Signs:: I have reviewed the patient's vital signs. Vital Signs: Vital Signs 07/09/16 07/09/16 07/09/16 07:40 09:03 10:00 Temperature 36.8 C 36.4 C L 36.8 C Pulse Rate 77 66 56 L Respiratory 16 16 16 Rate Blood Pressure 143/80 98/59 113/63 O2 Sat by Pulse 96 97 99 Oximetry - Progress/Reassessment Chief Complaint: Nausea/Vomiting Progress:: Improved Progress Note-Subjective: 07/09/16 10:58 She was at least 30% improved from presentation. I do not feel another head CT indicated. I do not feel LP indicated as nothing would suggest meningitis or SAH. I spoke with Dr Allen at [facility] who was solution director for Neuroloy. He reviewed the case. Recommend outpatient EEG. No Sz treatment. Conservative headache management. Pt has triptan at home. I spoke with Dr Pa who will order outpatient EEG. They are to call [facility] for a sooner Neuro appointment. She feels like going home. I discussed warning signs and reasons to return as well as the need for close f/u. Departure - Departure Clinical Impression: Headache Disposition: Home self-care Condition: Stable Additional Instructions: Rest. Fluids. Medication as directed. Call [facility] fto schedule a sooner Neurology appointment. Dr Pa's office will call you with a time for the EEG. Return for fever, vomiting, weakness or if your condition worsens or changes in any way. Referrals: Joe Pa MD [Primary Care Provider] - Prescriptions: Promethazine HCl [Phenergan] 25 mg PO QID PRN #15 tab PRN Reason: nausea/vomiting
[2016-07-09 11:12] VITALS: BP 113/65
== END 2016-07-09 11:22 | disposition home or self-care (01) ==
LOC: ER 07:36
DX: R51 Headache (principal); Z72.0 Tobacco use; E03.9 Hypothyroidism, unspecified